=== PATIENT | female | born 1980 | race Caucasian/White ===

== ENCOUNTER 2016-09-17 08:56 | Day surgery (SDC) | payer BC ==
--- NOTE | ~2016-09-17 | EGD ---
EGD REPORT [facility] [address] [address] NAME: CINTIA BALLESTEROS : [birth year] STATUS : REG [facility] PAT#: [id number] AGE: 35 ADM/REG DATE : 09/17/16 MR#: [id number] REPORT SERV DATE: 09/17/16 DICTATED BY: GIO HILL DATE: 09/17/16 REPORT STATUS : Draft [facility]ANS[facility]IBED BY: [facility] DATE: 09/17/16 Endoscopy Center Patient Name: Cintia Ballesteros Date of : 1980 Attending MD: GIO HILL MD Procedure Date No Time: 09/17/2016 Procedure: Upper GI endoscopy Indications: Abdominal pain in the right upper quadrant, Heartburn Referring MD: Kourtney Marroquin Medicines: Propofol per Anesthesia Complications: No immediate complications. Procedure: Pre-Anesthesia Assessment: - ASA Grade Assessment: III - A patient with severe systemic disease. After obtaining informed consent, the endoscope was passed under direct vision. Throughout the procedure, the patient's blood pressure, pulse, and oxygen saturations were monitored continuously. The GIF [id number] was introduced through the mouth, and advanced to the third part of duodenum. The upper GI endoscopy was accomplished without difficulty. The patient tolerated the procedure well. Findings: Non-severe esophagitis with no bleeding was found in the lower third of the esophagus. A non-obstructing Schatzki ring (acquired) was found at the gastroesophageal junction. A small hiatus hernia was present. as seen on retroflexion Diffuse mild inflammation characterized by congestion (edema) and erythema was found in the entire examined stomach. Biopsies were taken with a cold forceps for Helicobacter pylori testing. Localized moderate inflammation characterized by congestion (edema), erosions and erythema was found in the duodenal bulb. Biopsies were taken with a cold forceps for evaluation of celiac disease. And giardia, whipple's disease, and enteritis The 2nd part of the duodenum and 3rd part of the duodenum were normal. Biopsies were taken with a cold forceps for evaluation of celiac disease. And giardia, whipple's disease, and enteritis Impression: - Non-severe reflux esophagitis. - Non-obstructing Schatzki ring. - Hiatus hernia. - Gastritis. Biopsied. - Duodenitis. Biopsied. EGD REPORT [place] [id number] [place]. [address] NAME: CINTIA BALLESTEROS : [birth year] STATUS : REG [facility]#: [id number] AGE: 35 ADM/REG DATE : 09/17/16 MR#: [id number] REPORT SERV DATE: 09/17/16 DICTATED BY: GIO HILL DATE: 09/17/16 REPORT STATUS : Draft TRANSCRIBED BY: [employer] DATE: 09/17/16 - Normal 2nd part of the duodenum and 3rd part of the duodenum. Biopsied. Recommendation: - Patient has a contact number available for emergencies. The signs and symptoms of potential delayed complications were discussed with the patient. Return to normal activities tomorrow. Written discharge instructions were provided to the patient. - Return to previous diet. - Continue present medications. - Discontinue Prilosec (omeprazole). - Use Protonix (pantoprazole) 40 mg PO daily. - take 30-60 minutes before breakfast or supper - Use sucralfate tablets 1 gram PO QID. - take before each meal and at bedtime - Return to my office as previously scheduled. - Discharge patient to home. Procedure Code(s): --- Professional --- 04673, Esophagogastroduodenoscopy, flexible, transoral; with biopsy, single or multiple Diagnosis Code(s): --- Professional --- K21.0, Gastro-esophageal reflux disease with esophagitis K22.2, Esophageal obstruction K44.9, Diaphragmatic hernia without obstruction or gangrene K29.70, Gastritis, unspecified, without bleeding K29.80, Duodenitis without bleeding R10.11, Right upper quadrant pain R12, Heartburn CPT copyright 2013 [employer]. All rights reserved. The codes documented in this report are preliminary and upon tube cutter review may be revised to meet current compliance requirements. Gio Hill MD GIO HILL MD 09/17/2016 12:42 PM This report has been signed electronically. Number of Addenda: 0 Note Initiated On: 09/17/2016 11:49 AM Scope Withdrawal Time 0 hours 0 minutes 0 seconds EGD REPORT [place] [id number] [place] [address] NAME: CINTIA BALLESTEROS : [birth year] STATUS : REG [facility] PAT#: [id number] AGE: 35 ADM/REG DATE : 09/17/16 MR#: [id number] REPORT SERV DATE: 09/17/16 DICTATED BY: GIO HILL DATE: 09/17/16 REPORT STATUS : Draft TRANSCRIBED BY: [employer] DATE: 09/17/16 [address] [id number]
[~2016-09-17 08:56] MED LIST: ALIGN4 MG PO; ARMOUR THYRO60 MG PO; D 5000 PO; HARD NAILS PO; NOVLOGPUMP SC; OMEGA COMPLEX PO; PRENAVITE PR PO; VITAMIN B-121000 MC1 SL; ZOVIRAX400 MG PO
== END 2016-09-17 23:59 | disposition home or self-care (01) ==
LOC: DMU 08:56
PROVIDERS: Internal Medicine Gastroenterology
PROC: 0DB98ZX Excision of Duodenum, Via Natural or Artificial Opening Endoscopic, Diagnostic (ICD-10-PCS; 2016-09-17)
PROC: 0DB68ZX Excision of Stomach, Via Natural or Artificial Opening Endoscopic, Diagnostic (ICD-10-PCS; principal; 2016-09-17 10:30)
DX: K29.80 Duodenitis without bleeding (principal); K29.50 Unspecified chronic gastritis without bleeding; K21.0 Gastro-esophageal reflux disease with esophagitis; K22.2 Esophageal obstruction; K44.9 Diaphragmatic hernia without obstruction or gangrene; R10.11 Right upper quadrant pain; R12 Heartburn; E03.9 Hypothyroidism, unspecified; E11.9 Type 2 diabetes mellitus without complications; E66.01 Morbid (severe) obesity due to excess calories; F32.9 Major depressive disorder, single episode, unspecified
CPT/HCPCS: 82962; 84703; 88305; 88342